=== PATIENT | male | born 1955 | race Caucasian/White ===

== ENCOUNTER → 2020-05-08 | Outpatient (CLI) | payer BC ==
--- NOTE | 2020-05-08 15:10 | Diagnostic Imaging Report ---
Indication: Left hand pain Technique: 3 views left hand Comparison: None Findings: No acute fracture. No dislocation. There is suggestion of periarticular osteoporosis. There is degenerative narrowing of the lateral intercarpal joint and of the first and second carpometacarpal joints. There is questionable mild degenerative narrowing of the second through fifth proximal and distal interphalangeal joints The remaining joint spaces are preserved. No definite erosions.. Impression: No acute bony trauma Degenerative changes, as described Questionable periarticular osteoporosis, if real could indicate early changes of inflammatory arthropathy
--- NOTE | 2020-05-08 15:13 | Diagnostic Imaging Report ---
Indication: Right hand pain Technique: 3 views right hand Comparison: none Findings: No acute fracture. No dislocation. There is degenerative joint space narrowing of the lateral intercarpal joint. There is mild narrowing of the second through fifth proximal and distal interphalangeal joints. There is suggestion of periarticular osteoporosis Impression: Degenerative changes as described No acute bony trauma Equivocal periarticular osteoporosis; if real, could indicate early inflammatory arthropathy. Correlate with clinical findings
== END | disposition home or self-care (01) ==
LOC: RAD 13:40
DX: M25.542 Pain in joints of left hand (principal); M81.0 Age-related osteoporosis without current pathological fracture; M25.541 Pain in joints of right hand